=== PATIENT | male | born 1940 | race Caucasian/White ===

== ENCOUNTER 2018-05-25 04:46 | Emergency (ER) | payer MEDICARE, MEDICAID ==
[~2018-05-25] VITALS: Ht 170.2 cm; Wt 90.9 kg
[2018-05-25 05:02] VITALS: BP 112/79
[2018-05-25] MEDS ORDERED: DSS100 PO (05:09)
[2018-05-25] MEDS ORDERED: METO25XL PO (05:09)
[2018-05-25] MEDS ORDERED: TRAM50TA4 PO (05:09)
[2018-05-25] MEDS ORDERED: MULT-1192 PO (05:09)
[2018-05-25] MEDS ORDERED: TRAZ-219 PO (05:09)
[2018-05-25] MEDS ORDERED: SPIR25 PO (05:09)
[2018-05-25] MEDS ORDERED: LORA1TAB3 PO (05:09)
[2018-05-25] MEDS ORDERED: BISA10S PR (05:09)
[2018-05-25] MEDS ORDERED: FE PR (05:09)
[2018-05-25] MEDS ORDERED: DABI75CA3 PO (05:09)
[2018-05-25] MEDS ORDERED: RAME8TAB8 PO (05:09)
[2018-05-25] MEDS ORDERED: LIDO700A15 TP (05:09)
[2018-05-25] MEDS ORDERED: BUME1TAB17 PO (05:09)
[2018-05-25] MEDS ORDERED: LISI-661 PO (05:09)
[2018-05-25] MEDS ORDERED: TAMS0.4C32 PO (05:09)
[2018-05-25] MEDS ORDERED: ACET-784 PO (05:09)
[2018-05-25] MEDS ORDERED: MOM30 PO (05:09)
== END 2018-05-25 06:51 | disposition left against medical advice (07) ==
LOC: EMS 04:46
DX: R30.0 Dysuria (principal); F41.9 Anxiety disorder, unspecified; F32.9 Major depressive disorder, single episode, unspecified; I50.9 Heart failure, unspecified
CPT/HCPCS: 99283